=== PATIENT | female | born 1975 | race Caucasian/White ===

== ENCOUNTER → 2024-02-19 07:42 | Outpatient (REF) | payer OTHER, SELFPAY | LOC: EMG 07:42 | PROVIDERS: ATTENDING PHYSICIAN Internal Medicine Rheumatology | DX: G56.03 Carpal tunnel syndrome, bilateral upper limbs (principal); R20.0 Anesthesia of skin | CPT/HCPCS: 95886; 95911 ==

== ENCOUNTER → 2024-04-08 14:38 | Outpatient (REF) | payer OTHER, SELFPAY | LOC: WDC 14:38 | PROVIDERS: ATTENDING PHYSICIAN Obstetrics & Gynecology | DX: Z12.31 Encounter for screening mammogram for malignant neoplasm of breast (principal) | CPT/HCPCS: 77063; 77067 ==

== ENCOUNTER 2024-04-29 14:20 | Emergency (ER) | payer OTHER, SELFPAY ==
[2024-04-29 14:53] LABS: % Basophils 1.1 % (0-2); % Eosinophils 2.3 % (0-6); % Immature Granulocytes 0.2 % (0-0.5); % Lymphocytes 32.2 % (20.5-51.1); % Monocytes 8.5 % (1.7-9.3); % Neutrophils 55.7 % (42.2-75.2); Absolute Basophils 0.1 10^3/uL (0-0.2); Absolute Eosinophils 0.1 10^3/uL (0-0.7); Absolute Lymphocytes 1.5 10^3/uL (1.2-3.4); Absolute Monocytes 0.4 10^3/uL (0.1-0.6); Absolute Neutrophils 2.6 10^3/uL (1.4-6.5); Hematocrit 38.7 % (37.0-47.0); Hemoglobin 13.6 g/dL (12.0-16.0); Mean Corp Hgb Conc. 35.1 g/dL (33.0-37.0); Mean Corpuscular Hgb 30.4 pg (27.0-31.0); Mean Corpuscular Volume 86.4 fL (81.0-99.0); Mean Platelet Volume 11.1 fL (7.4-10.4); Nucleated Red Blood Cells % 0 %; Platelet Count 222 10^3/uL (130-400); Red Blood Cell Count 4.48 10^6/uL (4.20-5.40); Red Cell Dist. Width 12.8 % (11.5-14.5); White Blood Cell Count 4.7 10^3/uL (4.8-10.8)
[2024-04-29 15:05] LABS: INR 1.14; PT 14.7 Sec (11.4-14.6)
[2024-04-29 15:06] LABS: APTT 44.1 Sec (23.4-35.0)
--- NOTE | 2024-04-29 16:11 | ED.GENMED ---
History of Present Illness
<Nory Bonilla PA-C - Last Filed: 04/30/24 23:04>
General
Chief Complaint: Breathing Problem
Source: patient
Exam Limitations: none
Time Seen by Provider: 04/29/24 15:39
Nursing documentation reviewed up to this point in time: agreed with
History of Present Illness
History of Present Illness:
49-year-old female with history of PE, multiple DVTs, CVA with known clotting disorders presents emergency department with acute onset left lower chest discomfort around 1 PM today. Patient states that she was sitting earlier today when she had
acute onset shortness of breath with pleuritic chest pain on her left side. She states it is a sharp, stabbing pain in her left lower chest worse with deep inspiration. Patient denies any radiation of the pain. Patient denies any exertional
component to pain. Patient denies any associated lightheadedness, dizziness, fever, headache. Patient denies any radiation into back. Patient denies any associated numbness/tingling lower extremities, weakness in lower extremities. Patient
states that this did feel like her prior PE and came to the emergency department for further evaluation.
Patient does report travel to [place] at the end of February.
Patient has had multiple DVTs, a PE, UTI, and a CVA in the past. Prior DVT occurred following her section in 1999. She takes Pradaxa daily and denies missing any doses.
Review of Systems
<Nory Bonilla PA-C - Last Filed: 04/30/24 23:04>
Review of Systems
Allergies reviewed?: Yes
All Other Systems: ROS reviewed and negative except as documented in HPI and ROS
Phy Exam
<Nory Bonilla PA-C - Last Filed: 04/30/24 23:04>
Physical Exam
Physical Exam:
Vitals: Patient's vital signs are stable. Afebrile. Oxygen saturation 100 on room air
General: Patient is well appearing, no acute distress. Nontoxic appearing
Skin: Warm and dry, no rashes or lesions
Head: Normocephalic, atraumatic
Eyes: Sclera nonicteric. EOMs intact. No nystagmus.
Throat: Protecting airway
Neck: Normal ROM, no cervical spine tenderness, no meningismus. Trachea midline
Cardiac: Regular rate and rhythm, no murmurs. Chest wall nontender to palp
Pulm: Normal respiratory effort, no wheezes, rales, rhonchi heard on exam. No evidence of respiratory distress. Oxygen saturation 100 on room air.
Abdomen: No abdominal tenderness.
Extremities: No evidence of cyanosis or edema. No erythema, warmth in bilateral lower extremities. Great distal pulses
Neuro: AAOx3. CN II-XII intact. No focal neurologic deficits. Speech fluid. Sensation fully intact. Strength out of 5 in upper and lower extremities.
Psychiatric: Normal affect.
Scores
<Nory Bonilla PA-C - Last Filed: 04/30/24 23:04>
Heart Failure Risk
Heart Failure Risk Score: Not Applicable
Course
<Nory Bonilla PA-C - Last Filed: 04/30/24 23:04>
Orders/Labs/Results
Orders:
Orders
04/29/24 14:42
Complete Blood Count/With Diff Urgent
Comprehensive Metabolic Panel Urgent
PTT Urgent
Prothrombin Time Urgent
04/29/24 16:05
Electrocardiogram (*1) Urgent
Reason for Study: Chest Pain
CT Chest Pe Study Urgent
Comment: hx PE, clotting disorder on pradaxa
Reason For Exam: acute onset left lower chest pain
EKG- Treatment ONCE
0.9% Sodium Chloride 1000 ml [Nss] 1,000 ml IV BOLUS
Abnormal Lab Results
04/29/24
14:42
WBC 4.7 L 10^3/uL
(4.8-10.8)
MPV 11.1 H fL
(7.4-10.4)
PT 14.7 H Sec
(11.4-14.6)
APTT 44.1 H Sec
(23.4-35.0)
04/29/24 14:42
04/29/24 14:42
Vital Signs
Initial and Last Documented VS:
Initial Vital Signs
Temp Pulse Resp Pulse Ox
98.1 F 70 18 100
04/29/24 14:34 04/29/24 14:34 04/29/24 14:34 04/29/24 14:34
Last Documented Vital Signs
Temp Pulse Resp BP Pulse Ox
98.1 F 55 19 119/73 100
04/29/24 14:34 04/29/24 17:49 04/29/24 16:23 04/29/24 16:23 04/29/24 17:49
<Ramana Musa, - Last Filed: 04/29/24 20:21>
Orders/Labs/Results
Orders:
Orders
04/29/24 14:42
Complete Blood Count/With Diff Urgent
Comprehensive Metabolic Panel Urgent
PTT Urgent
Prothrombin Time Urgent
04/29/24 16:05
Electrocardiogram (*1) Urgent
Reason for Study: Chest Pain
CT Chest Pe Study Urgent
Comment: hx PE, clotting disorder on pradaxa
Reason For Exam: acute onset left lower chest pain
EKG- Treatment ONCE
0.9% Sodium Chloride 1000 ml [Nss] 1,000 ml IV BOLUS
Abnormal Lab Results
04/29/24
14:42
WBC 4.7 L 10^3/uL
(4.8-10.8)
MPV 11.1 H fL
(7.4-10.4)
PT 14.7 H Sec
(11.4-14.6)
APTT 44.1 H Sec
(23.4-35.0)
04/29/24 14:42
04/29/24 14:42
Vital Signs
Initial and Last Documented VS:
Initial Vital Signs
Temp Pulse Resp Pulse Ox
98.1 F 70 18 100
04/29/24 14:34 04/29/24 14:34 04/29/24 14:34 04/29/24 14:34
Last Documented Vital Signs
Temp Pulse Resp BP Pulse Ox
98.1 F 55 19 119/73 100
04/29/24 14:34 04/29/24 17:49 04/29/24 16:23 04/29/24 16:23 04/29/24 17:49
<Nory Bonilla PA-C - Last Filed: 04/30/24 23:04>
MDM/Problems Addressed
Differential Diagnosis Includes:
Not limited to: Muscle strain, pericarditis, myocarditis, pulmonary embolism, pneumothorax, costochondritis
MDM/Problems Addressed:
49-year-old female presenting with acute onset pleuritic left chest pain at 1 PM. No exertional component. No associated fevers, chills, cough, lightheadedness/dizziness. She does note some pain in her left calf over the past 2 weeks which has
improved. Patient does have a significant history of DVT, PE. She did travel to [place] a few months ago. Patient is on Pradaxa daily and has not missed any doses. Vital signs stable. Physical exam as above. Patient is very
well-appearing, in no apparent respiratory distress. Lungs are clear bilaterally. Heart regular rate and rhythm. There is no overlying rash to suggest shingles. Patient is perfusing well with great distal pulses. No clinical evidence of DVT on
exam. Labs initiated in triage without any clinically significant abnormalities. EKG shows sinus bradycardia with somewhat lower voltage QRS in comparison to prior. Given patient's significant history of thrombotic events�will obtain CTA chest to
rule out pulmonary embolism.
CTA chest report reviewed. Negative for pulmonary embolism. No evidence of pleural effusion or pericardial effusion. Did discuss findings with patient. Vital signs not consistent with pulmonary embolism. No indication for admission. Patient
remains hemodynamically stable and comfortable. Does not appear to be in respiratory stress. Patient will be discharged with close return precautions. Advised to continue taking all medication as prescribed. Patient seen with attending physician.
Chronic conditions affecting care:
Prior PE, DVT, CVA, TIA; Genetic clotting disorder (Factor II)
Acute Exacerbation and/or Progression of Chronic Illness:
N/A
<Nory Bonilla PA-C - Last Filed: 04/30/24 23:04>
*Radiology
Radiology exam reviewed: radiology read reviewed
*Pulse Oximetry
Patient hypoxic: no
*EKG
Interpreted by ED Provider?: Yes
EKG Intrepretation Date: 04/29/24
Interpretation: abnormal
Comparison EKG: changes noted
Heart Rate: 66
Rate: normal
Rhythm: PVC's and sinus arrhythmia
QRS Pattern: low voltage
Ischemia: no ischemia
*Demand Planner Interpretation
Rate: normal
Interpretation: normal
Heart Rate: 68
Rhythm: sinus
*Critical Care Note
Total Time (30-74mins, 75-104mins- exclusive of procedures): Not Applicable
ED Attending Note
<Nory Bonilla PA-C - Last Filed: 04/30/24 23:04>
-
Portions of this chart may have been created with voice recognition software.� Occasional wrong word or��sound alike� substitutions may have occurred due to the inherent limitations of voice recognition software.
<Ramana Musa DO - Last Filed: 04/29/24 20:21>
ED Attending Note
Patient seen and examined by attending physician: Yes
I performed the substantive portion of visit, reviewed & personally made and approve the management plan that is documented in note by myself or ANGEL.: Yes
ED Attending Note:
Patient is a 49-year-old female presents to the emergency department with left-sided lateral chest pain and increases with breathing or coughing. Patient denies feeling short of breath at rest. Patient started with the pain in the back of her left
leg and now has pain in her chest. Patient has a history of PE. Patient also has history of DVT. Patient was recently in [place] and [place]. On physical exam patient does not appear to be in any distress. Heart is regular lungs are clear.
Patient has no signs of rash of shingles. Abdomen soft nontender without any hepatosplenomegaly. Patient has no signs of PE on CT. I do not believe that an ultrasound is in order. Patient did get an millimeter R vaccine 6 days ago and this may
be result of that. Patient will be discharged.
Discharge Plan
Departure
Patient Disposition: Home (Routine Discharge)
Date of Disposition: 04/29/24
Time of Disposition: 18:18
Patient with high blood pressure during this ER visit?: No
Condition: Good
Covid-19: Not Applicable
Discharge Problem:
Shortness of breath
Instructions: Pleuritic Chest Pain (DC), Shortness of Breath, Adult ED
Prescriptions:
No Action
famotidine 40 MG tablet
40 mg PO HS
azathioprine 50 MG tablet
100 mg PO DAILY
nifedipine 30 MG tablet extended release
30 mg PO DAILY
amitriptyline 25 MG tablet
25 mg PO HS
duloxetine 30 MG capsule,delayed release(DR/EC)
30 mg PO DAILY
dabigatran etexilate [Pradaxa] 150 MG capsule
150 mg PO BID
cholecalciferol (vitamin D3) 125 MCG tablet,disintegrating
5,000 unit PO DAILY
amoxicillin 500 MG capsule
500 mg PO TID
acetaminophen [Tylenol Arthritis] 650 MG tablet extended release
650 mg PO PRN PRN (Reason: pain)
lisdexamfetamine [Vyvanse] 60 MG capsule
60 mg PO DAILY
metoprolol succinate 25 MG tablet extended release 24 hr
25 mg PO DAILY PRN (Reason: palpitations) Qty: 30 10RF
Referrals:
UNKNOWN - PT DOES,NOT KNOW [Family Provider] -
Activity Restrictions/Additional Instructions:
RETURN TO THE EMERGENCY DEPARTMENT WITH ANY FEVERS, CHEST PAIN, WORSENING IN SHORTNESS OF BREATH, PERSISTENT DIZZINESS/LIGHTHEADEDNESS, OR ANY OTHER CONCERNS
-As discussed�your CT scan shows no evidence of a pulmonary embolism. I recommend you take Tylenol as needed for any discomfort. It is important you stay well-hydrated. Get plenty of rest and take it easy for the next 2 days if symptoms improved.
Continue to take all your medications as prescribed.
-Follow-up with your primary care provider for further evaluation/management.
Monitor your symptoms closely and return to the emergency department any acute worsening/new symptoms
Interventions
Interventions:
*Risk Screen - Suicide Last Done: 04/29/24 14:34
*General Assessment Last Done: 04/29/24 14:34
*Neglect/Abuse Screening Last Done: 04/29/24 14:34
ED- Fall Risk Assessment Last Done: 04/29/24 18:34
*ED COVID-19 Vaccine History Last Done: 04/29/24 14:34
*Nursing Disposition Last Done: 04/29/24 18:34
ED- Cardiac Assessment Last Done: 04/29/24 16:47
ED- Pulmonary Assessment Last Done: 04/29/24 16:47
Discharge Date and Time
Discharge Date/Time: 04/29/24 18:35
Print Language: [id number]
[2024-04-29 16:12] LABS: ALT (SGPT) 21 U/L (0-35); AST (SGOT) 35 U/L (14-36); Albumin 4.7 g/dl (3.5-5.0); Alkaline Phosphatase 78 U/L (38-126); Blood Urea Nitrogen 17 mg/dl (7-17); Calcium 9.6 mg/dl (8.4-10.2); Carbon Dioxide 22 mmol/L (22-30); Chloride 105 mmol/L (98-107); Glucose 86 mg/dl (70-99); Potassium 4.2 mmol/L (3.5-5.1); Sodium 137 mmol/L (135-145); Total Bilirubin 0.8 mg/dl (0.2-1.3); Total Protein 7.1 g/dl (6.3-8.2); eGFR > 60.00
[2024-04-29 16:23] VITALS: BP 119/73
[2024-04-29] MEDS: NSS 1000 IV (17:43)
== END 2024-04-29 18:35 | disposition home or self-care (01) ==
LOC: EMR 14:20
PROVIDERS: EMERGENCY PHYSICIAN Emergency Medicine
DX: R07.89 Other chest pain (principal); I49.3 Ventricular premature depolarization; Z79.01 Long term (current) use of anticoagulants; Z79.02 Long term (current) use of antithrombotics/antiplatelets; Z86.711 Personal history of pulmonary embolism; Z86.718 Personal history of other venous thrombosis and embolism; Z86.73 Personal history of transient ischemic attack (TIA), and cerebral infarction without residual deficits; Z87.440 Personal history of urinary (tract) infections
CPT/HCPCS: 99284; 96360; 71275; 80053; 85025; 85610; 85730; 93005; Q9967

== ENCOUNTER → 2025-02-10 09:44 | Outpatient (REF) | payer OTHER, SELFPAY | LOC: WDC 09:44 | PROVIDERS: ATTENDING PHYSICIAN Obstetrics & Gynecology | DX: N64.4 Mastodynia (principal) | CPT/HCPCS: 76642; 77062; 77066 ==

== ENCOUNTER → 2025-09-13 12:58 | Outpatient (REF) | payer OTHER, SELFPAY | LOC: HWRCS 12:58 | PROVIDERS: ATTENDING PHYSICIAN Internal Medicine Cardiovascular Disease; FAMILY PHYSICIAN Internal Medicine; REFERRING PHYSICIAN Internal Medicine Cardiovascular Disease | DX: I49.3 Ventricular premature depolarization (principal) | CPT/HCPCS: 93306 ==